=== PATIENT | female | born 1990 | race Caucasian/White ===

== ENCOUNTER 2021-06-14 15:40 | Observation (INO) ==
[2021-06-14 17:12] LABS: Bilirubin,Urine Negative (Negative); Blood,Urine Negative (Negative); Clarity,Urine Clear (Clear); Color,Urine Light-Yellow (Yellow); Glucose,Urine (UA) Normal (Normal); Ketones,Urine 40 mg/dL (Negative); Leukocyte Esterase,Urine Negative (Negative); Nitrite,Urine Negative (Negative); PH,Urine 6.5 pH Units (5.0-8.0); Protein,Urine Negative (Neg-Trace); Specific Gravity,Urine 1.015 (1.010-1.025); Urobilinogen,Urine Normal (Normal)
[2021-06-14] MEDS ORDERED: Ringers Solution, Lactated 1,000 ML ONE (17:15)
[2021-06-14] MEDS ORDERED: Ringers Solution, Lactated 500 ML IVC ONE (17:48)
[2021-06-14 18:31] LABS: Basophils % 0.3 %; Eosinophils # 0.1 K/mcL (0.0-0.6); Eosinophils % 1.1 %; Hematocrit 35.5 % (35.3-44.9); Hemoglobin 11.3 g/dL (11.5-15.4); Immature Granulocytes % 0.4 % (0-4); Lymphocytes # 1.8 K/mcL (0.6-4.6); Lymphocytes % 15.4 %; Mean Corpuscular HGB Conc 31.8 g/dL (31.6-35.5); Mean Corpuscular Hemoglobin 26.3 pg (28.0-33.3); Mean Corpuscular Volume 82.6 fL (83.0-100.0); Mean Platelet Volume 10.9 fL (9.4-12.4); Monocytes # 0.7 K/mcL (0.0-1.3); Monocytes % 6.3 %; Neutrophils # 8.8 K/mcL (1.6-8.9); Platelet Count 292 K/mcL (140-400); Red Cell Distribution Width 13.6 % (11.5-14.5); Segmented Neutrophils % 76.5 %; White Blood Count 11.5 K/mcL (4.3-11.1)
[2021-06-14 18:56] LABS: Albumin 3.6 g/dL (3.5-5.7); Albumin/Globulin Ratio 1.2 (1.1-2.2); Bilirubin,Direct 0.1 mg/dL (0.0-0.2); Bilirubin,Indirect 0.4 mg/dL (0.0-1.0); Bilirubin,Total 0.5 mg/dL (0.3-1.0); Globulin 3.1 g/dL (2.4-3.5); Total Protein 6.7 g/dL (6.4-8.9)
== END 2021-06-14 19:55 | disposition home or self-care (01) ==
LOC: 1NENULAB
PROVIDERS: ADMIT Obstetrics & Gynecology; ATTEND Obstetrics & Gynecology

== ENCOUNTER 2021-06-24 12:03 | Inpatient (IN) ==
[2021-06-24] MEDS ORDERED: Metoclopramide 10 MG/2 ML VIAL IVP PRN (12:46)
[2021-06-24] MEDS ORDERED: Famotidine 20 MG/2 ML VIAL IVP PRN (12:46)
[2021-06-24] MEDS ORDERED: Naloxone 0.4 MG/ML INJ IVP PRN (12:46)
[2021-06-24] MEDS ORDERED: Azithromycin 500 MG in 0.9 % Sodium Chloride 250 ML IVPB PRN (12:46)
[2021-06-24] MEDS ORDERED: Ondansetron 4 MG/2 ML VIAL IVP PRN (12:46)
[2021-06-24] MEDS ORDERED: Lidocaine 1% 20 ML MDV ID PRN (12:46)
[2021-06-24] MEDS ORDERED: miSOPROStoL 25 MCG TABLET PO STA (13:04)
[2021-06-24] MEDS ORDERED: Oxytocin 20 units/ LR 1000 mL 20 UNIT/1,000 ML BAG IVC SCH (13:15)
[2021-06-24 14:25] LABS: Basophils % 0.4 %; Eosinophils # 0.2 K/mcL (0.0-0.6); Eosinophils % 1.7 %; Hematocrit 34.3 % (35.3-44.9); Hemoglobin 11.2 g/dL (11.5-15.4); Immature Granulocytes % 0.5 % (0-4); Lymphocytes # 1.8 K/mcL (0.6-4.6); Mean Corpuscular HGB Conc 32.7 g/dL (31.6-35.5); Mean Corpuscular Hemoglobin 26.7 pg (28.0-33.3); Mean Corpuscular Volume 81.9 fL (83.0-100.0); Mean Platelet Volume 11.3 fL (9.4-12.4); Monocytes # 1.1 K/mcL (0.0-1.3); Monocytes % 10.3 %; Neutrophils # 7.6 K/mcL (1.6-8.9); Platelet Count 291 K/mcL (140-400); Red Blood Count 4.19 M/mcL (3.82-4.97); Red Cell Distribution Width 13.4 % (11.5-14.5); Segmented Neutrophils % 70.1 %; White Blood Count 10.8 K/mcL (4.3-11.1)
[2021-06-24 15:12] LABS: Influenza A PCR Negative (Negative); Influenza B PCR Negative (Negative); Resp. Syncytial Virus PCR Negative (Negative)
[2021-06-24 15:13] LABS: SARS-CoV-2 by PCR (In House) Negative (Negative)
[2021-06-24] MEDS: *HR* Nalbuphine 10 MG/ML AMPUL IV PRN ×2 (15:27→18:29)
[2021-06-24 15:38] LABS: Amphetamine Screen,Urine Negative ng/mL (Cutoff=1000); Barbiturate Screen,Urine Negative ng/mL (Cutoff=200); Benzodiazepines Screen,Urine Negative ng/mL (Cutoff=200); Cannabinoid Screen,Urine Negative ng/mL (Cutoff = 50); Cocaine Screen,Urine Negative ng/mL (Cutoff= 300); Opiate Screen,Urine Negative ng/mL (Cutoff=300); Phencyclidine Screen,Urine Negative ng/mL (Cutoff=25)
[2021-06-24] MEDS: Ringers Solution, Lactated 1,000 ML IVC SCH (17:48)
[2021-06-25] MEDS ORDERED: Ondansetron ODT 4 MG TAB.RAPDIS SL PRN (03:50)
[2021-06-25] MEDS ORDERED: Benzocaine/Menthol 56 GM AEROSOL SPRAY TP PRN (03:50)
[2021-06-25] MEDS ORDERED: Measles/Mumps/Rubella Vacc 0.5 ML VIAL SQ PRN (03:50)
[2021-06-25] MEDS ORDERED: Lanolin 7 G OINT...G. TP PRN (03:50)
[2021-06-25] MEDS: Acetaminophen 325 MG TABLET PO SCH ×3 (04:11→19:22)
[2021-06-25] MEDS: Oxytocin 20 units/ LR 1000 mL 20 UNIT/1,000 ML BAG IVC SCH ×2 (04:12→11:21)
[2021-06-25] MEDS: Ibuprofen 600 MG TABLET PO SCH ×3 (05:55→19:22)
[2021-06-25] MEDS: Prenatal Vit/FA 1 EACH TABLET PO SCH (09:01)
[2021-06-25] MEDS: Ringers Solution, Lactated 1,000 ML IVC SCH (11:22)
[2021-06-25 16:17] VITALS: O2SAT 99
[2021-06-25 22:36] VITALS: BP 100/67; PULSE 70; TEMP 98
[2021-06-26] MEDS: Acetaminophen 325 MG TABLET PO SCH (02:01)
[2021-06-26] MEDS: Ibuprofen 600 MG TABLET PO SCH ×2 (02:01→08:07)
[2021-06-26] MEDS: Prenatal Vit/FA 1 EACH TABLET PO SCH (08:02)
== END 2021-06-26 12:40 | disposition home or self-care (01) | DRG 807 ==
LOC: 1NENULAB 12:03 → 1NENUOBS 06-25 05:04
PROVIDERS: ADMIT Registered Nurse; ATTEND Registered Nurse